=== PATIENT | male | born 1985 | race Caucasian/White ===

== ENCOUNTER → 2017-06-14 | Outpatient (CLI) | payer OTHER ==
[2017-06-14 11:57] LABS: ESTIMATED AVERAGE GLUCOSE 94 MG/DL (60-110); HEMOGLOBIN A1c 4.9 %
[2017-06-14 12:08] LABS: CHOLESTEROL LEVEL 192 MG/DL (<200); CHOLESTEROL RISK RATIO 4.571 (<5); HDL CHOLESTEROL 42 MG/DL (>40); LDL CHOLESTEROL 114.6 MG/DL (<100); NON-HDL-C 150 MG/DL; TRIGLYCERIDES LEVEL 177 MG/DL (<150); URIC ACID 8.6 MG/DL (3.5-7.2)
== END ==
LOC: M LAB 10:56
DX: Z13.1 Encounter for screening for diabetes mellitus (principal)
CPT/HCPCS: 84550

== ENCOUNTER → 2017-12-14 | Outpatient (CLI) | payer OTHER ==
[2017-12-14 13:02] LABS: ALBUMIN 3.9 GM/DL (3.2-5.2); ALBUMIN/GLOBULIN RATIO 1.18 (1.00-1.93); ALKALINE PHOSPHATASE 100 U/L (45-117); ALT/SGPT 34 U/L (12-78); AST/SGOT 10 U/L (7-37); BILIRUBIN,DIRECT 0.2 MG/DL (0.0-0.2); BILIRUBIN,TOTAL 0.9 MG/DL (0.2-1.0); TOTAL PROTEIN 7.2 GM/DL (6.4-8.2); TROPONIN I < 0.02 NG/ML (< 0.10)
[2017-12-14 13:04] LABS: D-DIMER QUANT < 270.0 ng/ml (<500)
[2017-12-15 10:18] LABS: H PYLORI SERUM QUANT IgG ABY 0.41 (0.00-0.79)
== END ==
LOC: M LAB 11:56
DX: R10.11 Right upper quadrant pain (principal); R07.2 Precordial pain
CPT/HCPCS: 71046

== ENCOUNTER → 2018-08-13 | Outpatient (CLI) | payer OTHER ==
--- NOTE | 2018-08-17 13:38 | SLEEPCENT ---
DATE OF PROCEDURE: 08/13/2018 ORDERING PROVIDER: Elena Thomason NP Nocturnal polysomnography was performed for evaluation of sleep physiology in this patient with a history of snoring and who suffers from obesity. 7 hours and 53 minutes of data were reviewed. There were 396 minutes of sleep identified. Sleep latency was prolonged at 54 minutes. Rapid eye movement (REM) latency was prolonged at 189 minutes. Sleep architecture showed fragmentation. There were three REM cycles noted. Overall sleep efficiency was 84.9%. The patient's electrocardiogram showed sinus rhythm throughout with an average heart rate of 64 beats per minute. Rate ranged 58-90 beats per minute. Electroencephalogram (EEG) showed some mild coarsening in background with EKG bleed through, otherwise normal waveforms for awake and sleep. There were 51 respiratory events identified of 10 seconds in duration or greater for an apnea-hypopnea index of 7.7. The events were primarily obstructive, more frequent in the supine posture and not stage related. Arousals from respiratory events occurred three times per hour and oxygen desaturations were seen to 89%. There was also some activity in the limb EMG leads. Some of the events were felt secondary to respiratory events. Limb movement arousal index was borderline 7. IMPRESSION: Obstructive sleep apnea syndrome (G47.33). Apnea-hypopnea index 7.7. RECOMMENDATIONS: The patient should be encouraged to return to sleep disorder center for pressure therapy. In the interim, alcohol and sedative avoidance should be practiced and caution exercised during the operation of motor vehicles.
== END ==
LOC: M SLEEP 20:00
PROVIDERS: ATTEND Nurse Practitioner Family
DX: G47.33 Obstructive sleep apnea (adult) (pediatric) (principal)

== ENCOUNTER → 2018-09-15 | Outpatient (CLI) | payer OTHER ==
[2018-09-15 14:18] LABS: BASO % 0.4 % (0.0-1.0); EOS # 0.2 10^3/uL (0.0-0.50); EOS % 2.4 % (0.0-3.0); HEMATOCRIT 42.3 % (42.0-52.0); HEMOGLOBIN 14.9 g/dl (13.5-17.5); LYMPH # 2.3 10^3/uL (1.5-4.5); MEAN CORPUSCULAR HEMOGLOBIN 31.6 pg (27.0-33.0); MEAN CORPUSCULAR HGB CONC 35.2 g/dl (32.0-36.5); MEAN CORPUSCULAR VOLUME 89.8 fl (80.0-96.0); MONO # 0.6 10^3/uL (0.0-0.8); NEUTROPHILS # 4.3 10^3/uL (1.8-7.7); NEUTROPHILS % 57.8 % (36.0-66.0); PLATELET COUNT, AUTOMATED 241 10^3/uL (150-450); RED BLOOD COUNT 4.71 10^6/uL (4.30-6.10); WHITE BLOOD COUNT 7.4 10^3/uL (4.0-10.0)
[2018-09-15 14:38] LABS: HEMOGLOBIN A1c 5.1 %
[2018-09-15 14:56] LABS: ALBUMIN 4.2 GM/DL (3.2-5.2); ALT/SGPT 42 U/L (12-78); BILIRUBIN,TOTAL 0.7 MG/DL (0.2-1.0); BLOOD UREA NITROGEN 18 MG/DL (7-18); CALCIUM LEVEL 8.8 MG/DL (8.5-10.1); CARBON DIOXIDE LEVEL 30 MEQ/L (21-32); CHLORIDE LEVEL 106 MEQ/L (98-107); CHOLESTEROL LEVEL 173 MG/DL (<200); CHOLESTEROL RISK RATIO 4.435 (<5); CREATININE FOR GFR 1.08 MG/DL (0.70-1.30); FREE T4 1.28 NG/DL (0.76-1.46); GLOMERULAR FILTRATION RATE > 60.0 (>60); GLUCOSE, FASTING 81 MG/DL (70-100); HDL CHOLESTEROL 39 MG/DL (>40); LDL CHOLESTEROL 105.4 MG/DL (<100); NON-HDL-C 134 MG/DL; POTASSIUM SERUM 4.1 MEQ/L (3.5-5.1); SODIUM LEVEL 142 MEQ/L (136-145); THYROID STIMULATING HORMONE 0.713 uIU/ML (0.358-3.740); TOTAL PROTEIN 7.5 GM/DL (6.4-8.2); TRIGLYCERIDES LEVEL 143 MG/DL (<150)
--- NOTE | 2018-09-15 15:59 | REP ---
RIGHT SHOULDER, THREE VIEWS: HISTORY: Shoulder pain. There is no acute or dislocation. The joint spaces are normal in appearance. A calcified granuloma is present in the right upper lobe. IMPRESSION: There is no acute fracture or dislocation. Electronically Signed by Talib Hernandez MD 09/15/2018 04:01 P
== END ==
LOC: M LAB 13:43
PROVIDERS: ATTEND Physician Assistant
DX: R03.0 Elevated blood-pressure reading, without diagnosis of hypertension (principal); M25.511 Pain in right shoulder

== ENCOUNTER → 2020-02-01 | Outpatient (CLI) | payer OTHER ==
--- NOTE | 2020-02-20 11:10 | REP ---
RIGHT ANKLE X-RAY: CLINICAL: Sprain, trauma. TECHNIQUE: AP, lateral, bilateral oblique views of the right ankle. FINDINGS: Lateral swelling consistent with inversion injury is appreciated. A very small curvilinear density is identified inferior to the tip of the fibula best noted on AP and oblique views which may represent a very small avulsion fracture. No further acute fracture is appreciated. The ankle mortise appears intact. IMPRESSION: Lateral swelling and possible very small avulsion fracture fragment off the lateral malleolus. MTDD
== END ==
LOC: M WUC 10:54
PROVIDERS: ATTEND Physician Assistant
DX: S93.401A Sprain of unspecified ligament of right ankle, initial encounter (principal); X58.XXXA Exposure to other specified factors, initial encounter; Y92.9 Unspecified place or not applicable

== ENCOUNTER → 2023-05-05 | Outpatient (CLI) | payer OTHER | LOC: M WUC 09:37 | PROVIDERS: ATTEND Nurse Practitioner Family | DX: M79.671 Pain in right foot (principal) ==

== ENCOUNTER → 2023-06-30 | Outpatient (CLI) | payer OTHER ==
[2023-06-30 18:52] LABS: C REACTIVE PROTEIN QUANTITATIV 0.5 MG/DL (<1.0); URIC ACID 9.6 MG/DL (3.7-9.2)
== END ==
LOC: M WUC 11:35
PROVIDERS: ATTEND Nurse Practitioner Adult Health
DX: M10.9 Gout, unspecified (principal)

== ENCOUNTER → 2025-01-17 | Outpatient (CLI) | payer OTHER ==
[2025-01-17 14:16] LABS: BASO # 0.1 10^3/uL (0.0-0.2); BASO % 0.8 % (0.0-1.0); EOS # 0.3 10^3/uL (0.0-0.5); EOS % 4.7 % (0.0-3.0); LYMPH # 1.8 10^3/uL (1.5-5.0); LYMPH % 28.7 % (24.0-44.0); MONO # 0.5 10^3/uL (0.0-0.8); MONO % 8.3 % (2.0-8.0); NEUTROPHILS # 3.6 10^3/uL (1.5-8.5); NEUTROPHILS % 57.2 % (36.0-66.0); PLATELET COUNT, AUTOMATED 236 10^3/uL (150-450)
[2025-01-17 14:45] LABS: ALT/SGPT 21 U/L (7.0-40); AST/SGOT 14 U/L (<34); CALCIUM LEVEL 9.4 MG/DL (8.5-10.1); CARBON DIOXIDE LEVEL 30 MMOL/L (20-31); CHLORIDE LEVEL 103 MMOL/L (98-107); CHOLESTEROL LEVEL 165 MG/DL (<200); CHOLESTEROL RISK RATIO 3.36 (<5); CREATININE FOR GFR 1.02 MG/DL (0.70-1.30); GLOMERULAR FILTRATION RATE > 90.0 (>60); LDL CHOLESTEROL 96.3 MG/DL (<100); NON-HDL-C 115.9 MG/DL; POTASSIUM SERUM 4.2 MMOL/L (3.5-5.1); SODIUM LEVEL 141 MMOL/L (136-145); TRIGLYCERIDES LEVEL 98 MG/DL (<150)
[2025-01-17 14:46] LABS: FREE T4 1.46 NG/DL (0.89-1.76)
== END ==
LOC: M WUC 11:58
PROVIDERS: ATTEND Nurse Practitioner Adult Health
DX: M10.9 Gout, unspecified (principal); Z13.220 Encounter for screening for lipoid disorders; Z13.0 Encounter for screening for diseases of the blood and blood-forming organs and certain disorders involving the immune mechanism; E66.3 Overweight